=== PATIENT | female | born 1990 | race Native Hawaiian/Other Pacific Islander ===

== ENCOUNTER → 2017-10-13 | Outpatient (CLI) | payer OTHER | LOC: COL.CARD 10:56 | DX: G40.909 Epilepsy, unspecified, not intractable, without status epilepticus (principal) ==

== ENCOUNTER → 2017-12-05 | Outpatient (CLI) | payer OTHER | LOC: COL.CARD 08:51 | DX: R00.2 Palpitations (principal) ==